=== PATIENT | male | born 1950 | race Two or more races ===

== ENCOUNTER → 2019-06-06 | Outpatient (CLI) | payer MEDICARE ==
--- NOTE | 2019-06-06 10:11 | FL ---
Barium swallow HISTORY: Dysphagia Patient was given barium to drink and evaluated under real-time fluoroscopy. 2 minute 16 seconds fluoroscopy time, 17 intraoperative images The swallowing mechanism is normal. No gastroesophageal reflux or hiatal hernia evident. No extrinsic or intrinsic esophageal lesion. Gastric fold pattern is unremarkable. Duodenal sweep and duodenal bu lb are normal. IMPRESSION: No abnormalities evident.
== END | disposition home or self-care (01) ==
LOC: RADUSWWP 08:50
PROVIDERS: ATTEND Family Medicine
DX: R13.10 Dysphagia, unspecified (principal)
CPT/HCPCS: 74220

== ENCOUNTER → 2020-11-19 | Outpatient (CLI) | payer MEDICARE ==
--- NOTE | 2020-11-19 15:13 | US ---
EXAMINATION TYPE: US venous doppler duplex LE DATE OF EXAM: 11/19/2020 2:42 PM COMPARISON: NONE CLINICAL HISTORY: PAIN IN LOWER LIMBS. Pain bilateral lower legs, worse on the right SIDE PERFORMED: bilateral TECHNIQUE: The lower extremity deep venous system is examined utilizing real time linear array sonog amarilis with graded compression, doppler sonography and color-flow sonography. VESSELS IMAGED: Common Femoral Vein Deep Femoral Vein Greater Saphenous Vein * Femoral Vein Popliteal Vein Small Saphenous Vein * Proximal Calf Veins (* superficial vessels) Right Leg: no evidence of DVT Left Leg: no evidence of DVT IMPRESSION: 1. No evidence of deep venous thrombosis in the bilateral lower extremity veins.
== END | disposition home or self-care (01) ==
LOC: RADUSWWP 14:14
PROVIDERS: ATTEND Family Medicine
DX: M79.661 Pain in right lower leg (principal)
CPT/HCPCS: 93970